=== PATIENT | female | born 1995 | race Caucasian/White ===

== ENCOUNTER 2017-12-06 02:15 | Emergency (ER) | payer OTHER ==
[2017-12-06] MEDS ORDERED: NS 1,000 ML IV ONE (02:23)
--- NOTE | 2017-12-06 02:23 | EDPHY ---
H & P Stated Complaint: chest discomfort, high HR, nausea Time Seen by Provider: 12/06/17 02:23 HPI/ROS: HPI CHIEF COMPLAINT: Palpitations, fast heart rate, right shoulder pain. HISTORY OF PRESENT ILLNESS: 22-year-old female, otherwise healthy without any significant medical history except for anxiety, she presents emergency room with palpitations and fast heart rate, right shoulder pain. She states this all started around 11:00 p.m. At night. It is now 230 in the morning it is since resolved. She states she now feels fine his felt fine coming over to the hospital. However she had 2 episodes of this this evening she was trying to go to sleep lying down when it happened. She describes palpitations she said it was rather fast but did not count it. At 1 point she felt her heart racing she took her pulse and says it was 70. She did feel little irregular irregular beat to it. Developed some right shoulder pain right neck pain. No central chest pain, no vomiting. No diaphoresis. She has never had this before. Past Medical History: History of anxiety Past Surgical History: Eye surgery when she was younger. Social History: Occasional alcohol use, she did have alcohol last night 3 glasses of wine, additionally 1 beer tonight. Family History: Noncontributory ROS REVIEW OF SYSTEMS: 10 Systems were reviewed and negative with the exception of the elements mentioned in the history of present illness. Exam Constitutional nontoxic no acute distress triage nursing summary reviewed, vital signs reviewed, awake/alert. Vital signs stable. Eyes normal conjunctivae and sclera, EOMI, PERRLA. HENT normal inspection, atraumatic, moist mucus membranes, no epistaxis, neck supple/ no meningismus, no raccoon eyes. Respiratory clear to auscultation bilaterally, normal breath sounds, no respiratory distress, no wheezing. Cardiovascular rate normal, regular rhythm, no murmur, no edema, distal pulses normal. Gastrointestinal soft, non-tender, no rebound, no guarding, normal bowel sounds, no distension, no pulsatile mass. Genitourinary no CVA tenderness. Musculoskeletal no midline vertebral tenderness, full range of motion, no calf swelling, no tenderness of extremities, no meningismus, good pulses, neurovascularly intact. Skin pink, warm, & dry, no rash, skin atraumatic. Neurologic awake, alert and oriented x 3, AAOx3, moves all 4 extremities equally, motor intact, sensory intact, CN II-XII intact, normal cerebellar, normal vision, normal speech. Psychiatric normal mood/affect. Heme/Lymph/Immune no lymphadenopathy. Differential Diagnosis: Includes but is not limited to in a particular order cardiac arrhythmia, anxiety, dehydration, electrolyte disturbance, PE, pneumonia , pneumothorax, CHF, ACS Medical Decision Making: Plan for this patient IV establishment IV fluid bolus 1 L normal saline, check electrolytes, EKG, chest x-ray, D-dimer, troponin. Re- evaluate. Re-evaluation: EKG interpretation by me on record in [facility] system. Impression time of EKG 2:36 a.m., sinus rhythm rate of 64 no signs of cardiac arrhythmia specifically no signs of Brugada or WPW of acute ischemia no ST elevation or ST depression. Intervals appropriate. Unremarkable EKG. ED x-ray chest one view negative for acute cardiopulmonary disease. 0404: Patient re-evaluated resting comfortably no acute distress. She denies any chest pain or shortness of breath. Denies shoulder or neck pain. The patient's EKG is unremarkable for ischemia. Or signs of cardiac arrhythmia. Additionally the patient has a negative troponin. Negative D-dimer. Chest x-ray has been reviewed is unremarkable I did re-evaluate her at 4:00 a.m. She denies any complaints she would like to go home. There has been no signs of cardiac arrhythmia or palpitations. Plan for this patient discharge, she should follow up with Cardiology for palpitations. Additionally return emergency room if there is worsening symptoms includes chest pain, shortness of breath, syncope, fast heart rate. She is comfortable this plan. Source: Patient - Personal History LMP (Females 10-55): Now Current Tetanus Diphtheria and Acellular Pertussis (TDAP): Yes - Medical/Surgical History Hx Asthma: No Hx Chronic Respiratory Disease: No Hx Diabetes: No Hx Cardiac Disease: No Hx Renal Disease: No Hx Cirrhosis: No Hx Alcoholism: No Hx HIV/AIDS: No Hx Splenectomy or Spleen Trauma: No - Social History Smoking Status: Never smoked Constitutional: Initial Vital Signs Temperature (C) 37.2 C 12/06/17 02:19 Heart Rate 88 12/06/17 02:19 Respiratory Rate 20 12/06/17 02:19 Blood Pressure 142/93 H 12/06/17 02:19 O2 Sat (%) 95 12/06/17 02:19 O2 Delivery Mode Room Air Allergies/Adverse Reactions: acetaminophen [From Percocet] Allergy (Verified 12/06/17 02:18) oxycodone [From Percocet] Allergy (Verified 12/06/17 02:18) Medical Decision Making - Data Points Laboratory Results: Laboratory Results 12/06/17 02:33 12/06/17 02:33 12/06/17 12/06/17 12/06/17 02:36 02:33 02:33 WBC RBC Hgb Hct MCV MCH MCHC RDW Plt Count MPV Neut % (Auto) Lymph % (Auto) [place] % (Auto) Eos % (Auto) Baso % (Auto) Nucleat RBC Rel Count Absolute Neuts (auto) Absolute Lymphs (auto) Absolute Monos (auto) Absolute Eos (auto) Absolute Basos (auto) Absolute Nucleated RBC Immature Gran % Immature Gran # D-Dimer < 0.27 ug/mLFEU ug/mLFEU (0.00-0.50) Sodium Potassium Chloride Carbon Dioxide Anion Gap BUN Creatinine Estimated GFR Glucose Calcium Magnesium Total Bilirubin Conjugated Bilirubin Unconjugated Bilirubin AST ALT Alkaline Phosphatase POC Troponin I 0.01 ng/mL ng/mL (0.00-0.08) NT-Pro-B Natriuret Pep Total Protein Albumin Beta HCG, Qual NEGATIVE 12/06/17 12/06/17 02:33 02:33 WBC 10.21 10^3/uL H 10^3/uL (3.80-9.50) RBC 4.84 10^6/uL 10^6/uL (4.18-5.33) Hgb 14.3 g/dL g/dL (12.6-16.3) Hct 41.3 % % (38.0-47.0) MCV 85.3 fL fL (81.5-99.8) MCH 29.5 pg pg (27.9-34.1) MCHC 34.6 g/dL g/dL (32.4-36.7) RDW 13.1 % % (11.5-15.2) Plt Count 348 10^3/uL 10^3/uL (150-400) MPV 9.6 fL fL (8.7-11.7) Neut % (Auto) 59.6 % % (39.3-74.2) Lymph % (Auto) 27.5 % % (15.0-45.0) [place] % (Auto) 10.5 % % (4.5-13.0) Eos % (Auto) 1.7 % % (0.6-7.6) Baso % (Auto) 0.3 % % (0.3-1.7) Nucleat RBC Rel Count 0.0 % % (0.0-0.2) Absolute Neuts (auto) 6.09 10^3/uL 10^3/uL (1.70-6.50) Absolute Lymphs (auto) 2.81 10^3/uL 10^3/uL (1.00-3.00) Absolute Monos (auto) 1.07 10^3/uL H 10^3/uL (0.30-0.80) Absolute Eos (auto) 0.17 10^3/uL 10^3/uL (0.03-0.40) Absolute Basos (auto) 0.03 10^3/uL 10^3/uL (0.02-0.10) Absolute Nucleated RBC 0.00 10^3/uL 10^3/uL (0-0.01) Immature Gran % 0.4 % % (0.0-1.1) Immature Gran # 0.04 10^3/uL 10^3/uL (0.00-0.10) D-Dimer Sodium 142 mEq/L mEq/L (135-145) Potassium 3.8 mEq/L mEq/L (3.3-5.0) Chloride 109 mEq/L mEq/L (97-110) Carbon Dioxide 17 mEq/l L mEq/l (22-31) Anion Gap 16 mEq/L mEq/L (8-16) BUN 14 mg/dL mg/dL (7-23) Creatinine 0.8 mg/dL mg/dL (0.6-1.0) Estimated GFR > 60 Glucose 100 mg/dL mg/dL (70-100) Calcium 9.7 mg/dL mg/dL (8.5-10.4) Magnesium 2.0 mg/dL mg/dL (1.6-2.3) Total Bilirubin 0.3 mg/dL mg/dL (0.1-1.4) Conjugated Bilirubin 0.2 mg/dL mg/dL (0.0-0.5) Unconjugated Bilirubin 0.1 mg/dL mg/dL (0.0-1.1) AST 23 IU/L IU/L (14-46) ALT 25 IU/L IU/L (9-52) Alkaline Phosphatase 87 IU/L IU/L (38-126) POC Troponin I NT-Pro-B Natriuret Pep 21 pg/mL pg/mL (0-125) Total Protein 8.0 g/dL g/dL (6.3-8.2) Albumin 4.5 g/dL g/dL (3.5-5.0) Beta HCG, Qual Medications Given: Discontinued Medications Sodium Chloride (Ns) 1,000 mls @ 0 mls/hr IV EDNOW ONE; Wide Open PRN Reason: Protocol Stop: 12/06/17 02:24 Last Admin: 12/06/17 02:38 Dose: 1,000 mls Point of Care Test Results: Chemistry 12/06/17 02:36 POC Troponin I 0.01 ng/mL ng/mL (0.00-0.08) Departure - Departure Disposition: Home, Routine, Self-Care Clinical Impression: Palpitations Condition: Good Instructions: Heart Palpitations (ED) Additional Instructions: 1. Return emergency room if develops chest pain, shortness of breath, fast heart rate. 2. Follow up with Cardiology. Referrals: ANAIS ZHAO [Other] - As per Instructions Amanda Marina MD [Medical Doctor] - As per Instructions
[2017-12-06 02:41] LABS: PLATELET COUNT 348 10^3/uL (150-400)
[2017-12-06 04:12] VITALS: BP 135/87
--- NOTE | 2017-12-07 23:08 | CPEKG ---
Test Reason : OPEN Blood Pressure : / mmHG Vent. Rate : 064 BPM Atrial Rate : 062 BPM P-R Int : 119 ms QRS Dur : 092 ms QT Int : 409 ms P-R-T Axes : 043 060 043 degrees QTc Int : 422 ms Sinus rhythm Confirmed by Neri Hart ([id number]) on 12/07/2017 11:08:10 PM Referred By: Confirmed By:Neri Hart
== END 2017-12-06 04:12 | disposition home or self-care (01) ==
DX: R00.2 Palpitations (principal); E86.9 Volume depletion, unspecified
CPT/HCPCS: 84484-PO